=== PATIENT | female | born 1970 | race Caucasian/White ===

== ENCOUNTER 2023-05-11 10:46 | Outpatient (REF) | payer BC, SELFPAY ==
[2023-05-11 14:33] LABS: HCT 44.7 % (36.0-46.0); HGB 14.6 g/dL (11.2-15.7); MCH 28.4 pg (27.0-33.0); MCHC 32.7 % (32.0-36.0); MCV 87 fL (80-95); Platelet Count 293 10^3/uL (130-400); RBC 5.14 10^6/uL (3.93-5.22); RDW 12.3 % (11.7-14.6); RDW-SD 39.4 fL; WBC 7.06 10^3/uL (4.4-10.8)
[2023-05-11 17:58] LABS: ALT 16 U/L (14-59); AST 10 U/L (15-37); Alkaline Phosphatase 64 U/L (46-116); Anion Gap 9.1 mmol/L (3-11); BUN 14 mg/dL (7-18); Bilirubin, Total 0.6 mg/dL (0.2-1.0); CO2 29.9 mmol/L (21.0-32.0); CREATININE 0.9 mg/dL (0.55-1.02); Calcium 9.4 mg/dL (8.5-10.1); Calculated LDL 236 mg/dL (<100); Chloride 102 mmol/L (98-107); Cholesterol 309 mg/dL (<200); Estimated GFR 76.44 (mL/min/1.73m2); Glucose 94 mg/dL (74-106); HDL Cholesterol 57 mg/dL (40-60); Potassium 4.7 mmol/L (3.5-5.1); Sodium 141 mmol/L (136-145); Total Protein 7.4 g/dL (6.4-8.2); Triglyceride 84 mg/dL (<150)
== END 2023-05-11 10:47 | disposition home or self-care (01) ==
LOC: NCHCN 10:46
PROVIDERS: Visit Provider Family Medicine
DX: Z00.00 Encounter for general adult medical examination without abnormal findings (principal); E78.5 Hyperlipidemia, unspecified; M91.10 Juvenile osteochondrosis of head of femur [Legg-Calve-Perthes], unspecified leg
CPT/HCPCS: 80053; 80061; 85027

== ENCOUNTER 2024-04-23 10:24 | Outpatient (REF) | payer BC, SELFPAY ==
[2024-04-23 17:04] LABS: ALT 17 U/L (14-59); AST 10 U/L (15-37); Albumin 3.8 g/dL (3.4-5.0); Alkaline Phosphatase 61 U/L (46-116); BUN 11 mg/dL (7-18); Bilirubin, Total 0.51 mg/dL (0.2-1.0); CREATININE 0.7 mg/dL (0.55-1.02); Calcium 8.9 mg/dL (8.5-10.1); Calculated LDL 221 mg/dL (<100); Chloride 106 mmol/L (98-107); Cholesterol 302 mg/dL (<200); Estimated GFR 102.71 (mL/min/1.73m2); Glucose 100 mg/dL (74-106); HDL Cholesterol 55 mg/dL (40-60); Potassium 3.8 mmol/L (3.5-5.1); Sodium 142 mmol/L (136-145); Total Protein 6.8 g/dL (6.4-8.2); Triglyceride 132 mg/dL (<150)
== END 2024-04-23 10:25 | disposition home or self-care (01) ==
LOC: NCHCN 10:24
PROVIDERS: PCP Family Medicine; Visit Provider Family Medicine
DX: E78.5 Hyperlipidemia, unspecified (principal)
CPT/HCPCS: 80053; 80061

== ENCOUNTER 2025-06-17 09:40 | Outpatient (REF) | payer BC, SELFPAY ==
[2025-06-17 15:49] LABS: ALT 21 U/L (14-59); AST 11 U/L (15-37); Albumin 3.7 g/dL (3.4-5.0); Alkaline Phosphatase 72 U/L (46-116); Anion Gap 6.6 mmol/L (3-11); BUN 14 mg/dL (7-18); Bilirubin, Total 0.4 mg/dL (0.2-1.0); CO2 31.4 mmol/L (21.0-32.0); Calcium 9.0 mg/dL (8.5-10.1); Chloride 104 mmol/L (98-107); Cholesterol 287 mg/dL (<200); Glucose 98 mg/dL (74-106); HDL Cholesterol 54 mg/dL (>or=50); Potassium 4.1 mmol/L (3.5-5.1); Sodium 142 mmol/L (136-145); Total Protein 7.0 g/dL (6.4-8.2)
== END 2025-06-17 09:41 | disposition home or self-care (01) ==
LOC: NCHCN 09:40
PROVIDERS: PCP Family Medicine; Visit Provider Family Medicine
DX: E78.5 Hyperlipidemia, unspecified (principal)
CPT/HCPCS: 80053; 80061

== ENCOUNTER 2025-07-23 10:57 | Outpatient (REF) | payer BC, SELFPAY ==
[2025-07-23 16:31] LABS: ALT 16 U/L (10-49); AST 18 U/L (<34)
== END 2025-07-23 10:58 | disposition home or self-care (01) ==
LOC: NCHCN 10:57
PROVIDERS: PCP Family Medicine; Visit Provider Family Medicine
DX: E78.5 Hyperlipidemia, unspecified (principal)
CPT/HCPCS: 84450; 84460